=== PATIENT | male | born 1995 | race Caucasian/White ===

== ENCOUNTER 2022-05-07 20:36 | Outpatient (CLI) | payer MEDICAID, OTHER | END 2022-05-07 20:37 | disposition critical access hospital (66) | LOC: EMS 20:36 | DX: M54.2 Cervicalgia (principal); M25.512 Pain in left shoulder; Y04.8XXA Assault by other bodily force, initial encounter | CPT/HCPCS: A0425; A0429 ==

== ENCOUNTER 2022-05-07 21:15 | Emergency (ER) | payer MEDICAID, OTHER ==
[2022-05-07] MEDS ORDERED: KETOROLAC 30 MG/ML VIAL IM STA (21:34)
[2022-05-07] MEDS ORDERED: methocarbamoL 500 MG TABLET PO STA (21:34)
[2022-05-07] MEDS ORDERED: oxyCODONE 5 MG TABLET PO STA (21:35)
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
[2022-05-07 23:25] VITALS: BP 133/85
== END 2022-05-07 23:31 | disposition home or self-care (01) ==
LOC: ED 21:15
DX: S13.4XXA Sprain of ligaments of cervical spine, initial encounter (principal); S09.90XA Unspecified injury of head, initial encounter; Y04.0XXA Assault by unarmed brawl or fight, initial encounter
CPT/HCPCS: 70450; 72125; 96372; 99283; 99284; A9270